=== PATIENT | female | born 1930 | race Caucasian/White ===

== ENCOUNTER 2016-04-17 16:58 | Emergency (ER) | payer MEDICARE, OTHER ==
[~2016-04-17] VITALS: Ht 165.1 cm; Wt 68.2 kg
[2016-04-17 17:04] VITALS: BP 150/91; PULSE 65; RESP 21; O2SAT 98
[2016-04-17 17:45] VITALS: BP 108/69; PULSE 69; RESP 19; O2SAT 97
--- NOTE | 2016-04-17 18:26 | DRSVH ---
PROCEDURE: X-RAY CHEST ONE VIEW, PORTABLE ([id number]) INDICATIONS: Altered mental status TECHNIQUE: One view of the chest was acquired. COMPARISON: None. FINDINGS: Surgical changes and devices: None. Lungs and pleura: No left pleural effusions or pneumothorax bilaterally. Lungs are abnormal with a pattern of bilateral alveolar opacification potentially pneumonia at each lung base, plus a subpulmon ic right pleural effusion that is small in size. Mediastinum: Mediastinal contours appear normal. Heart size is normal. Bones and chest wall: No suspicious bony lesions. Overlying soft tissues appear unremarkable. IMPRESSION: Bibasilar alveolar infiltration, small subpulmonic right pleural effusion Dictated by: Tomas Chan M.D. on 04/17/2016 at 18:24 Approved by: Tomas Chan M.D. on 04/17/2016 at 18:24
[2016-04-17 18:36] LABS: APPEARANCE,URINE HAZY (CLEAR,HAZY); COLOR,URINE YELLOW (YELLOW); OCCULT BLOOD,URINE NEGATIVE (NEGATIVE); PH,URINE 6.5 (5.0-8.0); UROBILINOGEN,URINE NORMAL (NORMAL)
--- NOTE | 2016-04-17 18:56 | DRSVH ---
PROCEDURE: CT BRAIN WITHOUT CONTRAST ([id number]) INDICATIONS: Altered mental status TECHNIQUE: Noncontrast 4.5 mm thick angled axial sections acquired from the foramen magnum to the vertex, with c oronal reformats. COMPARISON: None. FINDINGS: Image quality: Excellent. CSF spaces: Basal cisterns are patent. No extra-axial fluid collections. The ventricles are symmet josi in size and shape. Brain: No intracranial bleeds or masses. There is cerebral volume loss for age, with resultant vent ricular and sulcal prominence. There are periventricular and deep white matter chronic small vessel ischemic changes. In addition, there also is evidence of prior ischemic injury with encephalomalacia involving the right temporal and occipital brain parenchyma and extending to a lesser degree cephalad within the johnson radiata and centrum semiovale to the frontoparietal junction. There is intracrania l internal carotid artery atherosclerosis. Skull and face: Calvarium and visualized facial bones appear intact, without suspicious lesions. Sinuses: Visualized sinuses and mastoids are clear. IMPRESSION: No acute disease but there is evidence of prior infarction involving the right hemispher e in the middle cerebral artery and posterior cerebral artery distribution as discussed above. No he morrhage or mass is found. Dictated by: Tomas Chan M.D. on 04/17/2016 at 18:54 Approved by: Tomas Chan M.D. on 04/17/2016 at 18:54
[2016-04-17 19:05] LABS: BASOPHILS % (AUTO) 0.4 % (0-3); EOSINOPHILS % (AUTO) 3.1 % (0-5); MONOCYTES % (AUTO) 10.8 % (4-12); Mean Corpuscular Hemoglobin 29.9 pg (27.0-35.0); Mean Corpuscular Volume 88.9 fL (81-100); NEUTROPHILS % (AUTO) 55.4 % (40-74); Platelet Count 130 bil/L (150-400)
[2016-04-17 19:30] VITALS: BP 159/74; PULSE 79; O2SAT 94
[2016-04-17 21:00] VITALS: BP 165/85; PULSE 75; RESP 23; O2SAT 96
[2016-04-17] MEDS ORDERED: MeTOProlol XL 50 mg ER24 Tablet PO ONE (21:50)
[2016-04-17 21:55] LABS: APPEARANCE,URINE CLEAR (CLEAR,HAZY); COLOR,URINE STRAW (YELLOW); OCCULT BLOOD,URINE TRACE (NEGATIVE); UROBILINOGEN,URINE NORMAL (NORMAL)
--- NOTE | 2016-04-17 22:04 | ED.REPORT ---
HPI-Altered Mental Status Date of Service Apr 17, 2016 ED Provider: Andrea Archer MD Mrs. Jaime Mazariegos is a very pleasant 85-year-old lady with past medical history significant for multiple strokes, 3 within the last 6 years (unspecified hemorrhagic versus ischemic) and a fall with him last 6 months, past medical history includes hypertension and atrial fibrillation (not on anticoagulation currently due to fall risk, on baby aspirin), who presents to [facility] emergency department by way of EMS from [facility] living for episode of severe hypertension ~ 200/100, and report of headache. Daughter Rl was in the room and stated the patient was currently at baseline cognitively and left-sided facial weakness is NOT new for patient. Patient denies change of vision, syncope, fever, chills, chest pain, shortness of breath, abdominal pain , constipation, diarrhea, nausea, vomiting. Nursing Notes Stated Complaint: GENERAL Chief Complaint: General Complaint Nursing Notes Reviewed: Yes Allergies: Coded Allergies: No Known Allergies (Unverified , 04/17/16) Scheduled Ciprofloxacin (Ciprofloxacin) 500 Mg Tablet 500 MG PO BID General Time Seen by MD: 17:40 Chief Complaint Other (hypertension, headache) Sudden in Onset?: Yes Review of Systems Review of Systems Note: A comprehensive review of systems was conducted with the patient and found to be negative except as above in the History of Present Illness. Complete sys rev & neg: except as marked. Physical Exam Physical Exam Notes: General: Very pleasant elderly individual lying in her bed upright position in no acute distress, well-developed, well-nourished, appropriately interactive HEENT: Normocephalic, atraumatic. External ears without defect. Pupils equal, round, and reactive to light and accommodation. Anicteric sclerae, moist conjunctivae, and no lid lag. Oropharynx free of erythema and cobble stoning with moist mucosa. Neck: Supple with full range of motion. No jugular venous distension. No bruits. No lymphadenopathy or thyromegaly. Cardiovascular: Regular rate and rhythm with no murmurs, rubs, or gallops appreciated Pulmonary: Clear to auscultation bilaterally with no crackles, wheezes, or rhonchi. Normal respiratory effort with no use of accessory muscles. Abdomen: Bowel tones present. Soft, nontender, nondistended. No hepatosplenomegaly or masses appreciated. Extremities: No clubbing, cyanosis, edema, or lymphadenopathy appreciated. Skin: Normal temperature, turgor, and texture; no rash, ulcers, or subcutaneous nodules appreciated. Neurological: Cranial nerves grossly intact. Normal muscle strength, tone, and bulk. Reflexes, coordination, and sensory function within normal limits. No known gait impairment. Very mild left-sided facial weakness with squinting and cheek puffing Psychiatric: Normal mood and affect. Alert and oriented to person, place, and time. Initial Vital Signs Vital Signs (First) Date Time Temp Pulse Resp B/P Pulse Ox O2 Delivery O2 Flow Rate FiO2 04/17/16 17:04 36.4 65 21 150/91 98 Room Air Interpretation & Diagnostics Lab Results Interpretation Result Diagram: 04/17/16 1850 04/17/16 1715 Test 04/17/16 17:13 04/17/16 17:15 04/17/16 17:27 04/17/16 18:50 Troponin T < 0.010ug/L (0.0-0.011) Sodium Level 138mEq/L (134-144) Potassium Level 4.2mEq/L (3.5-5.2) Chloride Level 99mEq/L (97-108) Carbon Dioxide Level 29mmol/L (18-29) Blood Urea Nitrogen 13mg/dL (8-27) Creatinine 0.80mg/dL (0.57-1.00) Estimat Glomerular Filtration Rate 98mL/min (>59) Glucose Level 118mg/dL (60-99) Calcium Level 9.1mg/dL (8.5-10.1) Total Bilirubin 0.3mg/dL (0.0-1.2) Aspartate Amino Transf (AST/SGOT) 20U/L (0-50) Alanine Aminotransferase (ALT/SGPT) 8U/L (0-32) Alkaline Phosphatase 58U/L (25-165) Total Protein 7.1g/dL (6.4-8.4) Albumin 3.8g/dL (3.4-5.0) Hold Blue Top Tube Received (Received) Hold [place] Top Tube Received (Received) White Blood Count 4.8th/mm3 (3.8-10.1) Red Blood Count 4.79mil/mm3 (3.90-5.20) Hemoglobin 14.3g/dL (12.0-15.6) Hematocrit 42.6% (35.0-46.0) Mean Corpuscular Volume 88.9fL (81-100) Mean Corpuscular Hemoglobin 29.9pg (27.0-35.0) Mean Corpuscular Hemoglobin Concent 33.6% (32.0-37.0) Red Cell Distribution Width 13.7% (12.3-15.4) Platelet Count 130bil/L (150-400) Neutrophils (%) (Auto) 55.4% (40-74) Lymphocytes (%) (Auto) 30.1% (14-46) Monocytes (%) (Auto) 10.8% (4-12) Eosinophils (%) (Auto) 3.1% (0-5) Basophils (%) (Auto) 0.4% (0-3) Lactic Acid Level 0.8mmol/L (0.4-2.0) Test 04/17/16 21:20 Urine Color Straw (YELLOW) Urine Appearance Clear (CLEAR,HAZY) Urine pH 7.0 (5.0-8.0) Urine Specific [place] 1.010 (1.003-1.035) Urine Protein Negativemg/dL (NEG,TRACE) Urine Glucose (UA) Negativemg/dL (NEGATIVE) Urine Ketones Negativemg/dL (NEGATIVE) Urine Occult Blood Trace (NEGATIVE) Urine Nitrite Negative (NEGATIVE) Urine Bilirubin Negative (NEGATIVE) Urine Urobilinogen Normalmg/dL (NORMAL) Urine Leukocyte Esterase Negative (NEGATIVE) Urine RBC 0-2/hpf (0-2) Urine WBC 0-5/hpf (0-5) Urine Epithelial Cells None/hpf (NONE-MOD) Urine Crystals None seen (NONE SEEN) Urine Bacteria Many/hpf (NONE-FEW) Urine Hyaline Casts None/lpf (NONE) Urine Granular Casts None seen (NONE SEEN) Urine Waxy Casts None seen (NONE SEEN) Urine Red Blood Cell Casts None seen (NONE SEEN) Urine White Blood Cell Casts None seen (NONE SEEN) Urine Mucus None seen (None Seen) Urine Trichomonas None seen (NONE SEEN) Urine Yeast None (NONE SEEN) Urinalysis Comment None Urine Culture Reflexed Indicated Hold Urine Received (Received) Re-Eval/Medical Decision Med Decision/Clinical Course Mrs. Jaime Mazariegos is a very pleasant 85-year-old lady with past medical history significant for multiple strokes, 3 within the last 6 years (unspecified hemorrhagic versus ischemic) and a fall within last 6 months. Full elderly with altered mental status and hypertension workup. We did a workup for possible stroke with history of stroke and CT head wout contrast showed old stroke but no acute process. We checked for possible infectious sources such as urine, white count lactic acid. Her initial urine was positive for nitrites but also moderate epithelial cells therefore we repeated with a straight cath and showed urinary tract infection. Plan to send her home on ciprofloxacin. All of her electrolytes were completely normal. EKG confirmed chronic Afib and troponins were negative. Patient Discharge & Departure Shift Change Sign-Out Patient Care Transferred: Yes Discussed Complaint(s): Yes Laboratory Evaluation: Lab evaluation discussed Imaging Studies: Imaging discussed Response to Therapy: Unchanged Impression: Primary Impression: Hypertension Hypertension type: other secondary hypertension Hypertension goal: unspecified goal Qualified Code: I15.8 - Other secondary hypertension Additional Impressions: Urinary tract infection Urinary tract infection type: site unspecified Hematuria presence: without hematuria Qualified Code: N39.0 - Urinary tract infection, site not specified History of stroke Disposition: Home Discharge Condition All VS Reviewed: Yes Condition: Stable Patient Instructions: Urinary Tract Infection in Women (DC) Additional Instructions: During you visit to [facility] Emergency Department we obtained blood work for infectious markers, hemoglobin levels, and electrolytes. We obtained high resolution imaging of your brain and xray of chest. All your lab values were within normal limits and your imaging showed no acute processes or abnormalities. We will send you home with 7 day course of ciprofloxacin for your urinary tract infection. Do not hesitate to call emergency services or your primary care physician if you experience any of the following. - High unrelenting fevers. - Uncontrolled vomiting. - Severe hypertension. - Syncope or loss of consciousness. - Chest pain or severe shortness of breath. Follow up with your primary care physician in 1-2 weeks time following your emergency department visit for medication checks and general well-being. Referrals: Rosemary Madrid (PCP) EDSupervising Provider for APC: Andrea Archer MD Attending Statement Attending attestation: I saw this patient in conjunction with the above named resident. I was present for all lindquist portions of the history taking and physical examination. I agree with the workup, evaluation, treatment and disposition. In summary patient brought in asymptomatic for hypertension. History is quite limited due to patient's underlying dementia. Patient's daughter eventually showed up at the bedside and is able to confirm baseline neurologic examination and mental status. Altered mental status is reassuring except for AU which was initially concerning for UTI though a [id number] specimen. Repeat UA obtained by catheterization was concerning for UTI and the patient was treated with a course of ciprofloxacin. She remained stable and in no apparent distress and was discharged in good condition. Patient's blood pressure was not concerning the elevated. follow up and return precautions were reviewed in detail the patient's daughter who verbalized understanding and agreement with the plan. Andrea Archer MD copies to: Rosemary Madrid COREY P DO Apr 17, 2016 17:56 Andrea Archer MD Apr 17, 2016 23:25
[2016-04-17] MEDS ORDERED: CIPR-198 PO (22:06)
[2016-04-17 22:42] VITALS: BP 166/81; PULSE 79; RESP 16; O2SAT 95
== END 2016-04-17 22:43 | disposition home or self-care (01) ==
LOC: SED 16:58
DX: I15.8 Other secondary hypertension (principal); N39.0 Urinary tract infection, site not specified; B96.1 Klebsiella pneumoniae [K. pneumoniae] as the cause of diseases classified elsewhere; R29.810 Facial weakness; I48.91 Unspecified atrial fibrillation; Z79.82 Long term (current) use of aspirin; Z86.73 Personal history of transient ischemic attack (TIA), and cerebral infarction without residual deficits